=== PATIENT | female | born 1975 | race African-American/Black ===

== ENCOUNTER → 2020-09-25 | Outpatient (CLI) | payer OTHER ==
[~2020-09-25] MED LIST: CASIRIVIMAB/IMDEVIMAB 600/600mg in IV NS TV=50 ML IV ONE
[2020-09-25 14:18] VITALS: BP 162/85
--- NOTE | 2020-09-25 17:37 | NUR ---
PATIENT ARRIVED TO ROOM 124 FOR OUTPT INFUSION. PERIPHERAL IV LINE INITIATED WITH 20 G TO RAC, FLUSHED WITH NS 10 ML. INFUSION COMPLETE, PATIENT WAS MONITORED FOR 1 HOUR, PATIENT DENIED ANY PAIN, NAUSEA, STATED SHE FEELS BETTER. IV LINE DISCONT. PATIENT LEFT ROOM VIA AMBUL ACCOMP BY SELF.
== END | disposition home or self-care (01) ==
LOC: OPINF 13:54
PROVIDERS: ATTEND Family Medicine
DX: U07.1 COVID-19 (principal)
CPT/HCPCS: M0243; Q0243

== ENCOUNTER → 2020-11-06 | Outpatient (CLI) | payer OTHER ==
[2020-09-25 14:18] VITALS: BP 162/85
--- NOTE | 2020-11-07 15:15 | RAD ---
EXAM: US HEAD/NECK SOFT TISSUE 11/06/2020 3:46 PM CLINICAL INDICATION: Left neck swelling COMPARISON: None TECHNIQUE: Grayscale imaging of the left neck in the area of palpable concern in the subinsular theo on. FINDINGS: The area of concern correlates with the patient's submandibular gland, which has normal so nographic appearance. There are a few adjacent small submandibular lymph nodes, the largest measuring 6 mm short axis, nonspecific. IMPRESSION: No left neck mass or lymphadenopathy. The area of concern correlates with the patient's submandibular gland, which is normal in appearance. Electronically signed by: Donna Moya MD (11/07/2020 3:12 PM) [id number]
== END ==
LOC: US 15:38
PROVIDERS: ATTEND Nurse Practitioner Adult Health
DX: R59.9 Enlarged lymph nodes, unspecified (principal)
CPT/HCPCS: 76536